=== PATIENT | male | born 1980 | race Caucasian/White ===

== ENCOUNTER → 2019-11-30 09:40 | Outpatient (CLI) | payer OTHER | END | disposition home or self-care (01) | LOC: D.CT 09:40 | PROVIDERS: ATTEND Nurse Practitioner | DX: J32.9 Chronic sinusitis, unspecified (principal) ==

== ENCOUNTER 2019-12-05 20:47 | Emergency (ER) | payer OTHER ==
[~2019-12-05] VITALS: Ht 175.3 cm; Wt 100.0 kg
[2019-12-05 21:04] VITALS: Ht 175.3 cm; Wt 100.0 kg
[2019-12-05] MEDS ORDERED: LISINOPRIL20 MG PO (21:07)
[2019-12-05] MEDS ORDERED: STERAPRED DS 1010 MG PO (21:08)
[2019-12-05] MEDS ORDERED: CYCLOBENZAPRINE10 MG PO (21:08)
[2019-12-05] MEDS ORDERED: BUPROPION HCL150 M1 PO (21:09)
[2019-12-05] MEDS ORDERED: HYDROCODON-ACE1 EAC7 PO (21:09)
[2019-12-05 21:59] LABS: BASOPHILS 0 % (0-2); EOSINOPHILS 0.2 % (0-7); HEMATOCRIT 41.3 % (42.0-54.0); HEMOGLOBIN 14.4 g/dL (13.5-17.5); IMMATURE GRANULOCYTES 0.2 % (0-5); INR 1.01 (0.85-1.17); LYMPHOCYTES 15.4 % (15-50); MCHC 34.9 g/dL (31.0-37.0); MCV 94.5 fL (80.0-100.0); MEAN PLATELET VOLUME 9.5 fL (7.4-10.4); MONOCYTES 5.3 % (2-11); NEUTROPHILS 78.9 % (40-80); PLATELET COUNT 255 10x3/uL (130-400); PROTIME 13.3 SECONDS (11.6-15.0); RBC 4.37 10x6/uL (4.20-6.10); RDW 13.6 % (11.5-14.5); WBC 4.9 10x3/uL (4.8-10.8)
[2019-12-05 22:00] LABS: APTT 30.2 SECONDS (22.8-39.4)
[2019-12-05 22:02] LABS: CALC OSMOLALITY 271 mosm/kg (275-300); CALCIUM 8.1 mg/dL (8.5-10.1); CARBON DIOXIDE 25.3 mmol/L (21.0-32.0); CHLORIDE - SERUM 102 mmol/L (98-107); CREATININE - SERUM 1.1 mg/dL (0.6-1.3); GLUCOSE 109 mg/dL (74-106); POTASSIUM - SERUM 4.4 mmol/L (3.5-5.1); SODIUM 135 mmol/L (136-145); UREA NITROGEN 14 mg/dL (7-18); eGFR NON AFRICAN AMERICAN 79 mL/min (90-120)
[2019-12-05 22:15] LABS: ALBUMIN 3.7 g/dL (3.4-5.0); ALKALINE PHOSPHATASE 66 U/L (30-120); ALT (SGPT) 29 U/L (10-68); BILIRUBIN - TOTAL 0.27 mg/dL (0.2-1.3); CKMB 1.4 U/L (0.0-3.6); CREATINE KINASE 142 UL (21-232); MAGNESIUM - SERUM 2.1 mg/dL (1.8-2.4); PROTEIN - SERUM 6.8 g/dL (6.4-8.2); THYROID STIMULATING HORMONE 0.15 uIU/mL (0.36-3.74)
[2019-12-05 22:17] LABS: TROPONIN-I < 0.017 ng/mL (0.000-0.060)
[2019-12-05 23:05] LABS: UDS - AMPHET NEGATIVE QUAL (NEGATIVE); UDS - BARB NEGATIVE QUAL (NEGATIVE); UDS - BENZO POSITIVE QUAL (NEGATIVE); UDS - COCAINE NEGATIVE QUAL (NEGATIVE); UDS - OPIATE POSITIVE QUAL (NEGATIVE); UDS - PCP NEGATIVE QUAL (NEGATIVE); UDS - THC NEGATIVE QUAL (NEGATIVE)
[2019-12-05 23:12] LABS: BILIRUBIN NEGATIVE (NEGATIVE); GLUCOSE NEGATIVE (NEGATIVE); KETONE NEGATIVE (NEGATIVE); NITRITE NEGATIVE (NEGATIVE); UROBILINOGEN NORMAL (NORMAL)
[2019-12-06 00:28] VITALS: BP 126/77
== END 2019-12-05 23:32 | disposition home or self-care (01) ==
LOC: D.ER 20:47
PROVIDERS: Family Medicine
DX: R05 Cough (principal); R53.1 Weakness; R41.3 Other amnesia; I10 Essential (primary) hypertension; Z72.0 Tobacco use